=== PATIENT | male | born 1960 | race Hispanic/Latino ===

== ENCOUNTER 2022-11-21 11:35 | Emergency (ER) | payer OTHER ==
[~2022-11-21] VITALS: Ht 160 cm; Wt 72.6 kg
[2022-11-21] MEDS ORDERED: ACETAMINOPHEN WITH CODEINE 1 TAB TAB PO ONE (13:00)
[2022-11-21] MEDS ORDERED: ACET-2079 PO (13:26)
[2022-11-21 14:07] VITALS: BP 152/78; PULSE 78; RESP 20; O2SAT 98
== END 2022-11-21 14:15 | disposition home or self-care (01) ==
LOC: EDH 11:35
DX: S52.601A Unspecified fracture of lower end of right ulna, initial encounter for closed fracture (principal); Z90.89 Acquired absence of other organs; W22.8XXA Striking against or struck by other objects, initial encounter; Y93.89 Activity, other specified; Y92.89 Other specified places as the place of occurrence of the external cause; Y99.0 Civilian activity done for income or pay
CPT/HCPCS: 29125; 73110

== ENCOUNTER 2022-11-22 11:57 | Emergency (ER) | payer OTHER ==
[~2022-11-22] VITALS: Ht 160 cm; Wt 74.8 kg
[~2022-11-22 11:57] MED LIST: ACET-2079 PO
[2022-11-22 14:24] VITALS: BP 126/88; PULSE 68; RESP 16; O2SAT 98
== END 2022-11-22 14:38 | disposition home or self-care (01) ==
LOC: EDH 11:57
DX: S52.251A Displaced comminuted fracture of shaft of ulna, right arm, initial encounter for closed fracture (principal); Z90.49 Acquired absence of other specified parts of digestive tract; X58.XXXA Exposure to other specified factors, initial encounter; Y93.89 Activity, other specified; Y92.89 Other specified places as the place of occurrence of the external cause; Y99.8 Other external cause status
CPT/HCPCS: 29125; 73110